=== PATIENT | female | born 1960 | race Caucasian/White ===

== ENCOUNTER 2017-02-26 20:06 | Emergency (ER) | payer BC ==
[2017-02-26 20:13] VITALS: BP 159/88; PULSE 68; TEMP 97.9; BMI 38.4
[2017-02-26] MEDS ORDERED: KETOROLAC TROMETHAMINE 60 MG/2 ML VIAL IM ONE (21:39)
--- NOTE | 2017-02-26 21:40 | PDOC ---
History of Present Illness - General Chief Complaint: Pain Stated Complaint: LT LEG PAIN Time Seen by Provider: 02/26/17 20:36 - History of Present Illness Initial Comments: CHIEF COMPLAINT: pain to L leg HISTORY OF PRESENT ILLNESS: 56 yo F with hx of NIDDM, obesity, telangiectasias and breast cancer (currently undergoing hormone chemotherapy) presents to fast track with pain to L leg. Patient states she had an event last night and wore high heels, at the end of the night she felt significant pain to her calf/leg. On arrival to fast track she complains of pain to her medial thigh. She states she had "shortness of breath last night because I was in pain." She reports that she sees Dr. Bhagat for her spider veins and had a negative ultrasound two weeks ago. PAtient states she "takes a water pill" once a week for her leg swelling. PAST MEDICAL HISTORY: Denies past medical history FAMILY HISTORY: Denies SOCIAL HISTORY: Denies tobacco, alcohol, illicit drug use. SURGICAL HISTORY: Denies ALLERGIES: Levaquin REVIEW OF SYSTEMS General/Constitutional: Denies fever or chills. Denies weakness, weight change. HEENT: Denies change in vision. Denies ear pain or discharge. Denies sore throat. Cardiovascular: Denies chest pain or shortness of breath. Respiratory: Denies cough, wheezing, or hemoptysis. Gastrointestinal: Denies nausea, vomiting, diarrhea or constipation. Denies rectal bleeding. Genitourinary: Denies dysuria, frequency, or change in urination. Musculoskeletal: Pain to L leg. Denies joint or muscle swelling or pain. Denies neck or back pain. Skin and breasts: Denies rash or easy bruising. PHYSICAL EXAM General Appearance: Well-appearing, appropriately dressed. No apparent distress , no intoxication. HEENT: EOMI, PERRLA, normal ENT inspection, normal voice, TMs normal, pharynx normal. No conjunctival pallor. No photophobia, scleral icterus. Neck: Supple. Trachea midline. No tenderness, rigidity, carotid bruit, stridor , lymphadenopathy, or thyromegaly. Respiratory/Chest: Lungs CTAB. No shortness of breath, chest tenderness, respiratory distress, accessory muscle use. No crackles, rales, rhonchi, stridor , wheezing, dullness Cardiovascular: RRR. S1, S2. No JVD, murmur, bradycardia, tachycardia. Vascular Pulses: Dorsalis-Pedis (R): 2+, Dorsalis-Pedis (L): 2+ Gastrointestinal/Abdominal: Normal bowel sounds. Abdomen soft, non-distended. No tenderness or rebound tenderness. No organomegaly, pulsatile mass, guarding , hernia, hepatomegaly, splenomegaly. Lymphatic: No adenopathy, tenderness. Musculoskeletal/Extremities: Nonpitting edema to b/l legs. Tenderness to R calf and thigh. No erythema or warmth. Normal inspection. FROM of all extremities, normal capillary refill. Pelvis Stable. No CVA tenderness. No tenderness to extremities, pedal edema, swelling, erythema or deformity. Integumentary: Appropriate color, dry, warm. 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 Fully oriented, alert. Appropriate mood/affect. Motor strength 5/5. No appreciable EOM palsy, facial droop or sensory deficit. Past History - Past Medical History Allergies/Adverse Reactions: Allergies Allergy/AdvReac Type Severity Reaction Status Date / Time levofloxacin [From Levaquin] AdvReac Severe Vomiting Verified 02/26/17 20:13 Home Medications: Ambulatory Orders Levothyroxine [Synthroid -] 137 mcg PO DAILY 02/28/12 Rosuvastatin Calcium [Crestor] 10 mg PO DAILY 02/28/12 Anastrozole [Arimidex -] 1 mg PO DAILY 07/08/14 Levothyroxine [Synthroid -] 137 mcg PO DAILY 07/08/14 Rosuvastatin Calcium [Crestor] 10 mg PO DAILY 07/08/14 Acetaminophen [Tylenol .Extra-Strength -] 1,000 mg PO Q6H 11/21/14 Anastrozole [Arimidex -] 1 mg PO DAILY 11/21/14 Ibuprofen [Advil -] 400 mg PO QID 11/21/14 Canagliflozin/Metformin HCl [Invokamet 50-500 mg Tablet] 1 each PO DAILY Meclizine HCl [Antivert -] 25 mg PO TID #21 tablet 08/19/15 Aspirin [Aspirin EC] 81 mg PO ASDIR 02/26/17 Ibuprofen [Motrin -] 800 mg PO TID #21 tablet 02/27/17 Cancer: Yes (breast) Diabetes: Yes Hypercholesterolemia: Yes Suicide Attempt (Hx): No Thyroid Disease: Yes - Surgical History Abdominal Surgery: Yes Cholecystectomy: Yes - Immunization History Immunization Up to Date: Yes - Psycho/Social/Smoking Cessation Hx Anxiety: Yes (not on meds) Suicidal Ideation: No Smoking Status: No Smoking History: Never smoked Have you smoked in the past 12 months: No Number of Cigarettes Smoked Daily: 0 Hx Alcohol Use: No Drug/Substance Use Hx: No *Physical Exam - Vital Signs Last Vital Signs Temp Pulse Resp BP Pulse Ox 97.9 F 68 18 159/88 100 02/26/17 20:07 02/26/17 20:07 02/26/17 20:07 02/26/17 20:07 02/26/17 20:07 ED Treatment Course - RADIOLOGY Radiology Studies Ordered: Category Date Time Status DUPLEX VASCUL US-1 LEG [US] Stat Ultrasound 02/26/17 21:32 Ordered Medical Decision Making - Medical Decision Making 02/26/17 21:39 56 yo F with hx of NIDDM, obesity, telangiectasias and breast cancer (currently undergoing hormone chemotherapy) presents to fast track with pain to L leg. Patient currently on hormones, concern for DVT. -Doppler US, r/o DVT -60 mg Toradol IM Patient awaiting ultrasound. Patient transferred to main ED. Sign out given to NALINI Beck. *DC/Admit/Observation/Transfer Diagnosis at time of Disposition: Leo cyst Qualifiers: Laterality: left Qualified Code(s): M71.22 - Synovial cyst of popliteal space [ Leo], left knee - Discharge Dispostion Disposition: HOME Condition at time of disposition: Stable - Prescriptions Prescriptions: Ibuprofen [Motrin -] 800 mg PO TID #21 tablet - Referrals Referrals: Arnel Tanner MD [Primary Care Provider] - - Patient Instructions Printed Discharge Instructions: DI for Leo's Cyst Additional Instructions: Your Discharge Instructions: You must call primary care physician within 24 hours to arrange follow-up. Return to the Emergency Department with any new, persistent or worsening symptoms, for fever, chills, SOB, dizziness or any other concerning changes that may occur.
[2017-02-26] MEDS ORDERED: KETOROLAC TROMETHAMINE 60 MG/2 ML VIAL ONE (23:59)
--- NOTE | 2017-02-27 00:08 | PDOC ---
*Physical Exam - Vital Signs Last Vital Signs Temp Pulse Resp BP Pulse Ox 97.9 F 68 18 159/88 100 02/26/17 20:07 02/26/17 20:07 02/26/17 20:07 02/26/17 20:07 02/26/17 20:07 Medical Decision Making - Medical Decision Making 02/27/17 00:04 endorsed to follow US of the left leg US impression: No DVT, small Leo's cyst (Enrique Landon MD) Patient wishes to go home will inst to follow up with ortho. *DC/Admit/Observation/Transfer Diagnosis at time of Disposition: Leo cyst Qualifiers: Laterality: left Qualified Code(s): M71.22 - Synovial cyst of popliteal space [ Leo], left knee - Discharge Dispostion Disposition: HOME Condition at time of disposition: Stable - Prescriptions Prescriptions: Ibuprofen [Motrin -] 800 mg PO TID #21 tablet - Referrals Referrals: Arnel Tanner MD [Primary Care Provider] - - Patient Instructions Printed Discharge Instructions: DI for Leo's Cyst Additional Instructions: Your Discharge Instructions: You must call primary care physician within 24 hours to arrange follow-up. Return to the Emergency Department with any new, persistent or worsening symptoms, for fever, chills, SOB, dizziness or any other concerning changes that may occur.
== END 2017-02-27 00:14 | disposition home or self-care (01) ==
LOC: JER 20:06 → JERFT 20:06 → JER 02-27 00:14
PROC: 3E0233Z Introduction of Anti-inflammatory into Muscle, Percutaneous Approach (ICD-10-PCS; principal; 2017-02-26)
DX: M71.22 Synovial cyst of popliteal space [Baker], left knee (principal); E78.00 Pure hypercholesterolemia, unspecified; E11.9 Type 2 diabetes mellitus without complications; E66.09 Other obesity due to excess calories; Z3A.38 38 weeks gestation of pregnancy; C50.919 Malignant neoplasm of unspecified site of unspecified female breast; I78.1 Nevus, non-neoplastic
CPT/HCPCS: 93971-TC; 99281-25

== ENCOUNTER 2017-10-16 12:04 | Emergency (ER) | payer OTHER, BC ==
[2017-10-16 12:41] VITALS: BP 120/83; PULSE 61; TEMP 97.8; BMI 38.4
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
== END 2017-10-16 15:09 | disposition home or self-care (01) ==
LOC: JERFT 12:04
DX: S83.8X2A Sprain of other specified parts of left knee, initial encounter (principal); Y04.2XXA Assault by strike against or bumped into by another person, initial encounter; W01.190A Fall on same level from slipping, tripping and stumbling with subsequent striking against furniture, initial encounter; Y93.89 Activity, other specified; Y92.218 Other school as the place of occurrence of the external cause; Y99.0 Civilian activity done for income or pay
CPT/HCPCS: 73562-TC-LT-FY; 99281-25

== ENCOUNTER 2018-02-15 14:39 | Observation (INO) | payer BC, OTHER ==
--- NOTE | 2018-02-15 14:55 | PDOC ---
Attending Attestation - Resident Resident Name: PageSimon - HPI HPI: 02/15/18 15:55 Pt presents to the ED complaining of epigastric pain along with an episode of shortness of breath last night. The epigastric pain has been present for several days. Denies fever, nausea or vomiting or cough. Patient was in Dr. Phillips's office today, where he did an ECHO that had questionable wall motion abnormalities. - Physicial Exam PE: 02/15/18 16:07 Agree with resident exam. patient is alert and orientded in no acute distress. Lungs are clear. Heart has regular rate and rhythm. EKG shows no evidence of ischemia. Differential includes ACS, CHF, PUD, gastritis. Will check labs and cardiac enzymes and observe for rule out VA.
[2018-02-15 14:58] VITALS: BMI 42.7
--- NOTE | 2018-02-15 15:04 | PDOC ---
History of Present Illness - General Chief Complaint: Chest Pain Stated Complaint: ABNORMAL EKG Time Seen by Provider: 02/15/18 14:46 History Source: Patient Exam Limitations: No Limitations - History of Present Illness Initial Comments: 02/15/18 16:05 57F hx of NIDDM, obesity, telangiectasias and breast cancer (currently undergoing hormone chemotherapy) sent by Dr. Gann for EKG changes and some possibly hypokinesis of the inferior wall on echocardiogram at the office. Was was recently diagnosed with h.Pylori, complaining of epigastric over the past few days. She was sent to Dr. Green for EKG with multiple new PVC's , dyspnea on exertion and insomnia due to nocturnal shortness of breath that forced her to stand up. Patient denies chest pain but still feel epigastric pain. PCP: Dr. Arnel Tanner Presenting Symptoms: Abdominal Pain Past History - Past Medical History Allergies/Adverse Reactions: Allergies Allergy/AdvReac Type Severity Reaction Status Date / Time levofloxacin [From Levaquin] AdvReac Severe Vomiting Verified 10/16/17 12:42 Home Medications: Ambulatory Orders Levothyroxine [Synthroid -] 137 mcg PO DAILY 02/28/12 Rosuvastatin Calcium [Crestor] 10 mg PO DAILY 02/28/12 Anastrozole [Arimidex -] 1 mg PO DAILY 07/08/14 Canagliflozin/Metformin HCl [Invokamet 50-500 mg Tablet] 1 each PO DAILY Aspirin [Aspirin EC] 81 mg PO ASDIR 02/26/17 Cancer: Yes (breast) COPD: No Diabetes: Yes Hypercholesterolemia: Yes Thyroid Disease: Yes - Surgical History Abdominal Surgery: Yes Cholecystectomy: Yes - Immunization History Immunization Up to Date: Yes - Suicide/Smoking/Psychosocial Hx Smoking Status: No Smoking History: Never smoked Have you smoked in the past 12 months: No Number of Cigarettes Smoked Daily: 0 Hx Alcohol Use: No Drug/Substance Use Hx: No Review of Systems - Review of Systems Able to Perform ROS?: Yes Is the patient limited Luxembourgish proficient: No Constitutional: No: Symptoms Reported HEENTM: No: Symptoms Reported Respiratory: No: Symptoms reported Cardiac (ROS): No: Symptoms Reported ABD/GI: Yes: See HPI : No: Symptoms Reported Musculoskeletal: No: Symptoms Reported Integumentary: No: Symptoms Reported Neurological: No: Symptoms reported *Physical Exam - Vital Signs Last Vital Signs Temp Pulse Resp BP Pulse Ox 98.4 F 78 20 139/99 99 02/15/18 14:54 02/15/18 14:54 02/15/18 14:54 02/15/18 14:54 02/15/18 14:54 - Physical Exam General Appearance: Yes: Nourished, Appropriately Dressed. No: Apparent Distress HEENT: positive: EOMI, RODOLFO, Normal ENT Inspection Respiratory/Chest: positive: Lungs Clear, Normal Breath Sounds. negative: Chest Tender, Respiratory Distress Cardiovascular: positive: Regular Rhythm, Regular Rate, S1, S2 Gastrointestinal/Abdominal: positive: Normal Bowel Sounds, Tender (epigastric), Flat, Soft Extremity: positive: Normal Capillary Refill Integumentary: positive: Normal Color, Dry, Warm Neurologic: positive: Fully Oriented, Alert, Normal Mood/Affect ED Treatment Course - LABORATORY CBC & Chemistry Diagram: 02/15/18 15:29 02/15/18 15:29 - ADDITIONAL ORDERS Additional order review: Laboratory Results 02/15/18 02/15/18 15:29 05:04 Sodium Cancelled 141 Potassium Cancelled 3.7 Chloride Cancelled 108 H Carbon Dioxide Cancelled 29 Anion Gap Cancelled 4 L BUN Cancelled 12 Creatinine Cancelled 0.5 L Creat Clearance w eGFR Cancelled > 60 Random Glucose Cancelled 82 Calcium Cancelled 8.8 Total Bilirubin Cancelled 0.3 AST Cancelled 14 L ALT Cancelled 27 Alkaline Phosphatase Cancelled 78 Troponin I Cancelled < 0.02 Total Protein Cancelled 7.4 Albumin Cancelled 3.7 02/15/18 15:29 RBC 4.71 MCV 74.7 L MCHC 32.1 RDW 15.0 MPV 8.9 Neutrophils % 61.6 Lymphocytes % 24.7 D Monocytes % 10.5 H Eosinophils % 2.0 D Basophils % 1.2 Medical Decision Making - Medical Decision Making 02/15/18 17:14 EKG: Normal sinus rhythm. Cannot rule out Inferior and anterior infarct, age undetermined. labs and trops pending. 02/15/18 18:05 All negative. Will admit to Dr. Feng. *DC/Admit/Observation/Transfer Diagnosis at time of Disposition: Atypical chest pain - Discharge Dispostion Decision to Admit order: Yes - Referrals Referrals: Arnel Tanner MD [Primary Care Provider] - - Patient Instructions - Post Discharge Activity
[2018-02-15 15:57] LABS: BASO % 1.2 % (0-2.0); HEMATOCRIT 35.2 % (32.4-45.2); HEMOGLOBIN 11.3 GM/dL (10.7-15.3); LYMPH % 24.7 % (8-40); MCHC 32.1 g/dl (32.0-36.0); MEAN CELL VOLUME 74.7 fl (80-96); MEAN PLT VOLUME 8.9 fl (7.5-11.1); MONO % 10.5 % (3.8-10.2); NEUT % 61.6 % (42.8-82.8); PLATELET COUNT 234 K/MM3 (134-434); RBC 4.71 M/mm3 (3.60-5.2); WHITE BLOOD COUNT 4.7 K/mm3 (4.0-10.0)
[2018-02-15 17:47] LABS: ALBUMIN 3.7 g/dl (3.4-5.0); ALK PHOS 78 U/L (45-117); ANION GAP 4 (8-16); BILIRUBIN,TOTAL 0.3 mg/dL (0.2-1.0); BLOOD UREA NITROGEN 12 mg/dL (7-18); CALCIUM 8.8 mg/dL (8.5-10.1); CHLORIDE 108 mmol/L (98-107); CO2 29 mmol/L (21-32); CREATININE 0.5 mg/dL (0.55-1.02); GLUCOSE,RANDOM 82 mg/dL (74-106); POTASSIUM 3.7 mmol/L (3.5-5.1); SGOT/AST 14 U/L (15-37); SGPT/ALT 27 U/L (12-78); SODIUM 141 mmol/L (136-145); TOT PROT 7.4 g/dl (6.4-8.2)
[2018-02-15] MEDS ORDERED: ASPIRIN 325 MG ENTERIC COATED TABLET (FP) PO ONE (18:23)
[2018-02-15] MEDS ORDERED: ASPIRIN 325 MG ENTERIC COATED TABLET (FP) ONE (18:37)
[2018-02-15 23:11] LABS: URINE APPEARANCE CLEAR; URINE BILIRUBIN NEGATIVE (<2.0 mg/dL); URINE COLOR LTYELLOW; URINE GLUCOSE (UA) NEGATIVE (NEGATIVE); URINE KETONE NEGATIVE (NEGATIVE); URINE NITRITE NEGATIVE (NEGATIVE); URINE PROTEIN NEGATIVE (NEGATIVE); URINE UROBILINOGEN NEGATIVE mg/dL (0.2-1.0)
[2018-02-15 23:32] LABS: URINE LEUK ESTERASE 1+ (NEGATIVE)
[2018-02-16 00:19] LABS: EPI CELLS RARE /HPF (FEW); URINE BACTERIA RARE /hpf (NONE SEEN); URINE MUCUS RARE
[2018-02-16] MEDS ORDERED: ASPIRIN COATED 81 MG TABLET.EC PO SCH (02:45)
--- NOTE | 2018-02-16 02:48 | HP ---
Admitting History and Physical - Past Medical History Cardiovascular: Yes: HTN, Hyperlipdemia - Smoking History Smoking history: Never smoked Have you smoked in the past 12 months: No Aproximately how many cigarettes per day: 0 - Alcohol/Substance Use Hx Alcohol Use: No - Social History ADL: Independent History of Recent Travel: No Home Medications - Allergies Allergies/Adverse Reactions: Allergies Allergy/AdvReac Type Severity Reaction Status Date / Time levofloxacin [From Levaquin] AdvReac Severe Vomiting Verified 10/16/17 12:42 - Home Medications Home Medications: Ambulatory Orders Levothyroxine [Synthroid -] 137 mcg PO DAILY 02/28/12 Rosuvastatin Calcium [Crestor] 10 mg PO DAILY 02/28/12 Anastrozole [Arimidex -] 1 mg PO DAILY 07/08/14 Canagliflozin/Metformin HCl [Invokamet 50-500 mg Tablet] 1 each PO DAILY Aspirin [Aspirin EC] 81 mg PO ASDIR 02/26/17 Amoxicillin - [Amoxicillin 500mg Capsule -] 500 mg PO BID 02/15/18 Pantoprazole Sodium [Protonix] 40 mg PO DAILY 02/15/18 Physical Examination Vital Signs: Vital Signs Temperature 98.3 F 02/16/18 02:42 Pulse Rate 71 02/16/18 02:42 Respiratory Rate 20 02/16/18 02:42 Blood Pressure 104/62 02/16/18 02:42 O2 Sat by Pulse Oximetry (%) 99 02/15/18 14:54 Labs: CBC, BMP 02/15/18 15:29 02/15/18 15:29
[2018-02-16] MEDS ORDERED: LEVOTHYROXINE NA 25 MCG TABLET (FP) ONE (05:02)
[2018-02-16] MEDS ORDERED: LEVOTHYROXINE NA 112 MCG TABLET (FP) ONE (05:02)
[2018-02-16] MEDS: INSULIN SLIDING SCALE (NOVOLOG) 1 VIAL SQ SCH ×2 (06:37→12:24)
[2018-02-16] MEDS ORDERED: metFORMIN HCL 500 MG TABLET (FP) PO SCH (07:00)
[2018-02-16] MEDS ORDERED: LEVOTHYROXINE 112 MCG, LEVOTHYROXINE 25 MCG PO SCH (07:00)
[2018-02-16 07:14] LABS: BASO % 1.1 % (0-2.0); EOS % 2.1 % (0-4.5); HEMOGLOBIN 11.3 GM/dL (10.7-15.3); MCH 24.2 pg (25.7-33.7); MCHC 32.3 g/dl (32.0-36.0); MEAN CELL VOLUME 74.9 fl (80-96); MEAN PLT VOLUME 8.9 fl (7.5-11.1); MONO % 10.6 % (3.8-10.2); NEUT % 61.2 % (42.8-82.8); PLATELET COUNT 204 K/MM3 (134-434); RBC 4.68 M/mm3 (3.60-5.2); RDW 14.9 % (11.6-15.6); WHITE BLOOD COUNT 5.6 K/mm3 (4.0-10.0)
--- NOTE | 2018-02-16 08:38 | PN ---
Progress Note, Physician Chief Complaint: 57F with PMH breast CA,hypothyroidism, DM, HL, mild non-obstx CAD on coronary CTA at [facility] in 2013 presented to office with epigastric pain and + breath test for H Pylori. Also c/o AMARO x 1 one day ECG showed PVCs. Office echo technically difficult- inferior wall not well seen. Given her AMARO, PVCs and epigastric pain I sent her to ER to R/O [place] and for further work up. TnI negative, multiple sets. D-dimer negative, O2 saturation 99% room air CXR WNL LE doppler negative. History of Present Illness: TELE: NSR w/ rare PVCs - Current Medication List Current Medications: Active Medications Anastrozole (Arimidex -) 1 mg PO DAILY [facility] Aspirin (Ecotrin -) 81 mg PO ASDIR [facility] Insulin Aspart (Novolog Vial Sliding Scale -) 1 vial SQ ACHS [facility]; Protocol Last Admin: 02/16/18 06:37 Dose: Not Given Levothyroxine Sodium 112 mcg/ (Levothyroxine Sodium 25 mcg) 137 mcg PO DAILY@ 0700 [facility] Last Admin: 02/16/18 06:38 Dose: 137 mcg Metformin HCl (Glucophage -) 500 mg PO BID@0700,1630 [facility] Last Admin: 02/16/18 06:39 Dose: Not Given Pantoprazole Sodium (Protonix -) 40 mg PO DAILY [facility] Rosuvastatin Calcium (Crestor -) 10 mg PO HS [facility] - Objective Vital Signs: Vital Signs Temperature 98.3 F 02/16/18 05:25 Pulse Rate 62 02/16/18 05:25 Respiratory Rate 16 02/16/18 08:31 Blood Pressure 125/70 02/16/18 05:25 O2 Sat by Pulse Oximetry (%) 98 02/16/18 08:31 Constitutional: Yes: No Distress, Calm Eyes: Yes: Conjunctiva Clear, EOM Intact HENT: Yes: Atraumatic, Normocephalic Neck: Yes: Supple, Trachea Midline Cardiovascular: Yes: Regular Rate and Rhythm Respiratory: Yes: CTA Bilaterally (no rales or wheezing) Gastrointestinal: Yes: Soft (non-tender) Edema: Yes (lymphedema b/l) Neurological: Yes: Alert, Oriented ...Motor Strength: WNL Psychiatric: Yes: WNL Labs: CBC, BMP 02/16/18 05:30 02/15/18 15:29 - ....Imaging Chest X-ray: Report Reviewed, Image Reviewed EKG: Image Reviewed Other: Other (LE Venous Duplex negative DVT b/l) Problem List - Problems (1) Atypical chest pain Assessment/Plan: -Low suspicion for pulmonary embolism: normal O2 saturation, negative D-dimer; ECG not c/w pericarditis -Serial cardiac enzymes negative -For echo and Lexiscan MIBI today -If negative or mild defect plan for d/c with medical Rx and close outpatient f/ u Code(s): R07.89 - OTHER CHEST PAIN (2) VPC (ventricular premature complex) Assessment/Plan: -Check TSH -Telemetry -Will consider beta mi after assessment of 24 hour VPC burden; currently asx without palpitations Code(s): I49.3 - VENTRICULAR PREMATURE DEPOLARIZATION (3) Diabetes Assessment/Plan: -further management per PMD Code(s): E11.9 - TYPE 2 DIABETES MELLITUS WITHOUT COMPLICATIONS Qualifiers: Diabetes mellitus type: type 2 Diabetes mellitus complication status: without complication (4) CAD (coronary artery disease) Assessment/Plan: -Coronary CTA mild non-obstx in 2014 -ASA and Statin -Lexiscan MIBI today Code(s): I25.10 - ATHSCL HEART DISEASE OF [place] CORONARY ARTERY W/O ANG PCTRS Qualifiers: Coronary Disease-Associated Artery/Lesion type: [place] artery [place] vs. transplanted heart: [place] heart Associated angina: without angina Qualified Code(s): I25.10 - Atherosclerotic heart disease of [place] coronary artery without angina pectoris (5) Hyperlipidemia Assessment/Plan: -outpatient fasting lipids; continue statin -counselled on diet and exercise Code(s): E78.5 - HYPERLIPIDEMIA, UNSPECIFIED Qualifiers: Hyperlipidemia type: unspecified Qualified Code(s): E78.5 - Hyperlipidemia , unspecified (6) Leo cyst Qualifiers: Laterality: left Qualified Code(s): M71.22 - Synovial cyst of popliteal space [[place]], left knee
--- NOTE | 2018-02-16 09:42 | EKG ---
Test Reason : Blood Pressure : / mmHG Vent. Rate : 074 BPM Atrial Rate : 074 BPM P-R Int : 184 ms QRS Dur : 098 ms QT Int : 440 ms P-R-T Axes : 000 146 157 degrees QTc Int : 488 ms SUSPECT ARM LEAD REVERSAL, INTERPRETATION ASSUMES NO REVERSAL NORMAL SINUS RHYTHM INFERIOR INFARCT (CITED ON OR BEFORE 16-AUG-2011) ANTEROLATERAL INFARCT (CITED ON OR BEFORE 31-JUL-2011) ABNORMAL ECG WHEN COMPARED WITH ECG OF 15-FEB-2018 15:08, QRS AXIS SHIFTED RIGHT QUESTIONABLE CHANGE IN INITIAL FORCES OF LATERAL LEADS Confirmed by CHRISTOPHER SANZ MD ([id number]) on 02/16/2018 9:42:24 AM Referred By: ZUHAIR Confirmed By:CHRISTOPHER SANZ MD
[2018-02-16] MEDS ORDERED: REGADENOSON 0.4 MG/5 ML PRE-FILLED SYRINGE IVPUSH ONE ×2 (09:45→10:33)
--- NOTE | 2018-02-16 09:45 | EKG ---
Test Reason : Blood Pressure : / mmHG Vent. Rate : 074 BPM Atrial Rate : 074 BPM P-R Int : 172 ms QRS Dur : 094 ms QT Int : 418 ms P-R-T Axes : 036 000 013 degrees QTc Int : 463 ms NORMAL SINUS RHYTHM CANNOT RULE OUT INFERIOR INFARCT (CITED ON OR BEFORE 16-AUG-2011) CANNOT RULE OUT ANTERIOR INFARCT (CITED ON OR BEFORE 31-JUL-2011) ABNORMAL ECG WHEN COMPARED WITH ECG OF 21-NOV-2014 00:12, PREMATURE VENTRICULAR COMPLEXES ARE NO LONGER PRESENT Confirmed by CHRISTOPHER SANZ MD ([id number]) on 02/16/2018 9:44:55 AM Referred By: Confirmed By:CHRISTOPHER SANZ MD
[2018-02-16] MEDS ORDERED: PANTOPRAZOLE 40 MG TABLET (FP) PO SCH (10:00)
[2018-02-16] MEDS ORDERED: LEVOTHYROXINE NA 150 MCG TABLET PO SCH (10:00)
[2018-02-16] MEDS ORDERED: ANASTROZOLE 1 MG TABLET PO SCH (10:00)
[2018-02-16] MEDS ORDERED: AMINOPHYLLINE 250 MG/10 ML VIAL ONE (11:12)
[2018-02-16] MEDS ORDERED: AMINOPHYLLINE 250 MG/10 ML VIAL IVPUSH ONE (11:15)
[2018-02-16 12:28] VITALS: BP 123/92; PULSE 71; TEMP 98.3
[2018-02-16] MEDS ORDERED: metoPROLOL SUCCINATE 25 MG TAB.SR.24H (FP) PO SCH (13:30)
[2018-02-16] MEDS ORDERED: ROSUVASTATIN CA 10 MG TABLET (FP) PO SCH (22:00)
== END 2018-02-16 16:16 | disposition short-term general hospital (02) ==
LOC: JER 14:39 → SUPCPDRO 14:39 → JERBED 18:07 → J4W 19:05 → INTOOBSV 02-16 02:44 → OBSVTOIN 02-16 02:44
PROVIDERS: ADMIT Internal Medicine; ATTEND Internal Medicine
PROC: 3E033GC Introduction of Other Therapeutic Substance into Peripheral Vein, Percutaneous Approach (ICD-10-PCS; principal; 2018-02-15)
DX: R07.89 Other chest pain (principal); E11.9 Type 2 diabetes mellitus without complications; C50.919 Malignant neoplasm of unspecified site of unspecified female breast; I10 Essential (primary) hypertension; I25.10 Atherosclerotic heart disease of native coronary artery without angina pectoris; I49.3 Ventricular premature depolarization; M71.22 Synovial cyst of popliteal space [Baker], left knee; E78.5 Hyperlipidemia, unspecified; E66.9 Obesity, unspecified; Z68.41 Body mass index [BMI] 40.0-44.9, adult; Z92.21 Personal history of antineoplastic chemotherapy; Z88.1 Allergy status to other antibiotic agents; Z79.82 Long term (current) use of aspirin
CPT/HCPCS: 36415; 71045-TC-FY; 78452-TC; 80053; 81003; 81015; 82550; 82553; 82962; 84484; 85025; 85379; 93005; 93010; 93017; 93306-TC; 93970-TC; 99283-25; A9502; G0378; J2785

== ENCOUNTER 2018-09-02 19:50 | Emergency (ER) | payer BC ==
--- NOTE | 2018-09-02 20:00 | PDOC ---
History of Present Illness - General Stated Complaint: FALL Time Seen by Provider: 09/02/18 19:59 History Source: Patient - History of Present Illness Initial Comments: 09/02/18 20:19 The patient is a 57 year old female with a PMH of HTN, HLD, Breast CA (s/p lumpectomy) who presents to our ED following a mechanical fall. 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 Denies LOC, states she had a few seconds of feeling as if the room was spinning. No nausea/vomiting Did not attempt to move/ambulate, EMS called. 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 The patient denies chest pain, shortness of breath, abdominal pain, nausea/ vomiting, diarrhea/constipation, dysuria/hematuria. Allergy: Floroquinolones Surgical: R breast lumpectomy Social: denies toxic habits PMD: Dr. Young Tanner As per EMR patient Past History - Past Medical History Allergies/Adverse Reactions: Allergies Allergy/AdvReac Type Severity Reaction Status Date / Time levofloxacin [From Levaquin] AdvReac Severe Vomiting Verified 10/16/17 12:42 Home Medications: Ambulatory Orders Levothyroxine [Synthroid -] 137 mcg PO DAILY 02/28/12 Rosuvastatin Calcium [Crestor] 10 mg PO DAILY 02/28/12 Anastrozole [Arimidex -] 1 mg PO DAILY 07/08/14 Canagliflozin/Metformin HCl [Invokamet 50-500 mg Tablet] 1 each PO DAILY Aspirin [Aspirin EC] 81 mg PO ASDIR 02/26/17 Amoxicillin - [Amoxicillin 500mg Capsule -] 500 mg PO BID 02/15/18 Pantoprazole Sodium [Protonix] 40 mg PO DAILY 02/15/18 Cancer: Yes (breast, on hormone therapy) Cardiac Disorders: Yes (ACS) COPD: No Diabetes: Yes GI Disorders: Yes (Peptic ulcers, H.Pylori, gastritis) Hypercholesterolemia: Yes Thyroid Disease: Yes - Surgical History Abdominal Surgery: Yes Cholecystectomy: Yes (20 years ago) - Immunization History Immunization Up to Date: Yes - Suicide/Smoking/Psychosocial Hx Smoking Status: No Smoking History: Never smoked Have you smoked in the past 12 months: No Number of Cigarettes Smoked Daily: 0 Hx Alcohol Use: No Drug/Substance Use Hx: No Substance Use Type: None Hx Substance Use Treatment: No Review of Systems - Review of Systems Constitutional: No: Chills, Fever HEENTM: No: Recent change in vision Respiratory: No: Cough, Shortness of Breath Cardiac (ROS): No: Chest Pain, Lightheadedness, Palpitations, Syncope ABD/GI: No: Constipated, Diarrhea, Nausea, Vomiting Musculoskeletal: Yes: Other (LUE - shoulder, wrist pain; pain in L trapezoid area) Neurological: No: Numbness, Tingling *Physical Exam - Physical Exam General Appearance: Yes: Nourished, Appropriately Dressed HEENT: positive: Normal Voice, Hearing Grossly Normal. negative: TM Bulging, TM Dull, TM Erythema Neck: positive: Trachea midline, Supple Respiratory/Chest: positive: Lungs Clear, Normal Breath Sounds Cardiovascular: positive: S1, S2. negative: JVD Vascular Pulses: Dorsalis-Pedis (R): 2+, Doralis-Pedis (L): 2+ Gastrointestinal/Abdominal: positive: Normal Bowel Sounds, Soft Extremity: positive: Normal Capillary Refill, Normal Inspection, Pedal Edema (3 + pitting edema B/L LE) Integumentary: positive: Normal Color, Dry, Warm Medical Decision Making - Medical Decision Making 09/02/18 20:34 57 year old female s/p mechanical fall. No LOC Hypertensive ( PE significant for L volar/dorsal wrist TTP, anterior shoulder TTP. Ranges LUE w/pain No C- spine or midline L/T/S TTP. Will obtain XR of L wrist, humerus, shoulder, L rib series. As patient has no LOC, no neurologic deficit on PE, will withhold from CT head at this time. Toradol for pain control. Reassess. 09/02/18 21:08 09/02/18 21:24 Patient ambulatory around unit XR taken, awaiting images Toradol administered @ 2100 09/02/18 22:01 Repeat BP 144/74 Hand, wrist, shoulder, rib series negative for fracture Will discharge patient home with supportive care. I discussed the physical exam findings, ancillary test results and final diagnoses with the patient. I answered all of the patient's questions. The patient was satisfied with the care received and felt comfortable with the discharge plan and treatment plan. The patient will return to the Emergency Department with any new, persistent or worsening symptoms. 09/02/18 22:03 *DC/Admit/Observation/Transfer Diagnosis at time of Disposition: Fall - Discharge Dispostion Disposition: HOME Condition at time of disposition: Good Decision to Admit order: No - Referrals Referrals: Arnel Tanner MD [Primary Care Provider] - - Patient Instructions Printed Discharge Instructions: How To Perform RICE (Rest, Ice, Compress, Elevate) Additional Instructions: You can take Tylenol (up to 4000 mg daily) alternating with Motrin (up to 3200 mg daily) for your pain for the next 3-5 days. Please follow-up with your primary care doctor in the next 3 days. Return to the Emergency Department for any new/worsening/concerning symptoms. - Post Discharge Activity
[2018-09-02] MEDS ORDERED: KETOROLAC TROMETHAMINE 30 MG/1 ML VIAL IM ONE (20:14)
--- NOTE | 2018-09-02 20:32 | PDOC ---
Attending Attestation - HPI HPI: 09/02/18 20:32 The patient is a 57 year old female, with a significant past medical history of breast CA s/p lumpectomy, hypertension, hyperlipidemia, who presents to the emergency department s/p slip and fall on a wet floor around 730pm. 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 She denies LOC. She denies head trauma. She reports left wrist pain, left shoulder and left flank pain at this time. She denies hitting any objects on the way down. She reportedly fell onto a wet tiled floor. The patient denies chest pain, shortness of breath, headache and dizziness. The patient denies fever, chills, nausea, vomit, diarrhea and constipation. The patient denies dysuria, frequency, urgency and hematuria. Allergies: levofloxacin PCP: Dr. Arnel Tanner - Physicial Exam PE: 09/02/18 20:33 GENERAL: Awake, alert, and fully oriented, in no acute distress HEAD: (+) small hematoma to the left. EYES: PERRLA, EOMI, sclera anicteric, conjunctiva clear ENT: Auricles normal inspection, hearing grossly normal, nares patent, oropharynx clear without exudates. Moist mucosa NECK: Normal ROM, supple, no lymphadenopathy, JVD, or masses LUNGS: Breath sounds equal, clear to auscultation bilaterally. No wheezes, and no crackles HEART: Regular rate and rhythm, normal S1 and S2, no murmurs, rubs or gallops ABDOMEN: Soft, nontender, normoactive bowel sounds. No guarding, no rebound. No masses EXTREMITIES: Normal range of motion, no edema. No clubbing or cyanosis. No cords, erythema, or tenderness NEUROLOGICAL: Cranial nerves II through XII grossly intact. Normal speech, normal gait SKIN: Warm, Dry, normal turgor, no rashes or lesions noted. MUSCULOSKELETAL: (+) Left paraspinal lumbar and trapezius pain on palpation. tenderness to ribs 5,6,7,8 on left. No midline spine pain. Pain improvement with Toradol in ED. - Medical Decision Making 09/02/18 20:33 Documentation prepared by Sasha Roberts, acting as medical records technician for Joslyn Gill MD <Sasha Roberts - Last Filed: 09/02/18 22:15> - Resident Resident Name: Giuliana Jonas - ED Attending Attestation I have performed the following: I have examined & evaluated the patient, The case was reviewed & discussed with the resident, I agree w/resident's findings & plan - Medical Decision Making 09/02/18 21:58 XRAYS all normal; pt can go home with motrin and muscle relaxant 09/02/18 23:00 Son will prescribe musle relaxant if mom wants it; she is refusing it at this time. <Joslyn Gill - Last Filed: 09/02/18 23:00>
[2018-09-02] MEDS ORDERED: KETOROLAC TROMETHAMINE 30 MG/1 ML VIAL ONE (21:09)
[2018-09-02 23:50] VITALS: TEMP 98; BMI 42.5
[2018-09-07 04:52] VITALS: BP 144/74; PULSE 72
== END 2018-09-03 00:14 | disposition home or self-care (01) ==
LOC: JER 19:50
PROC: 3E0233Z Introduction of Anti-inflammatory into Muscle, Percutaneous Approach (ICD-10-PCS; principal; 2018-09-02)
DX: S09.8XXA Other specified injuries of head, initial encounter (principal); M25.532 Pain in left wrist; M79.642 Pain in left hand; W01.0XXA Fall on same level from slipping, tripping and stumbling without subsequent striking against object, initial encounter; Y93.89 Activity, other specified; Y92.59 Other trade areas as the place of occurrence of the external cause; Y99.8 Other external cause status; I10 Essential (primary) hypertension; E11.9 Type 2 diabetes mellitus without complications; Z79.84 Long term (current) use of oral hypoglycemic drugs; E03.9 Hypothyroidism, unspecified; Z87.19 Personal history of other diseases of the digestive system; Z85.3 Personal history of malignant neoplasm of breast
CPT/HCPCS: 71101-TC-LT-FY; 73030-TC-LT-FY; 73060-TC-LT-FY; 73110-TC-LR-FY; 73130-TC-LT-FY; 99281-25; 99282-25

== ENCOUNTER 2021-04-13 08:55 | Emergency (ER) | payer BC ==
[2021-04-13] MEDS ORDERED: CASIRIVIMAB/IMDEVIMAB 10 ML in SODIUM CHLORIDE 100 ML IVPB ONE (09:24)
[2021-04-13] MEDS ORDERED: ACETAMINOPHEN 1000 MG/100 ML VIAL (NON FORMULARY) IVPB ONE (09:24)
[2021-04-13 09:27] VITALS: BMI 40.2
[2021-04-13] MEDS ORDERED: SODIUM CHLORIDE 1,000 ML IV SCH (09:30)
[2021-04-13] MEDS ORDERED: ACETAMINOPHEN INJECTION 100 ML IVPB ONE (09:39)
[2021-04-13] MEDS ORDERED: METOCLOPRAMIDE HCL INJECTION 10 MG/2 ML VIAL ONE (09:39)
[2021-04-13] MEDS ORDERED: ONDANSETRON 4 MG/2 ML VIAL IVPUSH ONE (09:49)
[2021-04-13] MEDS ORDERED: METOCLOPRAMIDE HCL INJECTION 10 MG/2 ML VIAL IVPUSH ONE (10:40)
[2021-04-13 11:10] LABS: BASO % 0.5 % (0-2.0); EOS % 0.3 % (0-4.5); HEMATOCRIT 37.1 % (32.4-45.2); LYMPH % 19.8 % (8-40); MCH 23.8 pg (25.7-33.7); MCHC 32.3 g/dl (32.0-36.0); MEAN CELL VOLUME 73.7 fl (80-96); MONO % 10.5 % (3.8-10.2); NEUT % 68.9 % (42.8-82.8); PLATELET COUNT 220 10^3/uL (134-434); RBC 5.03 M/mm3 (3.60-5.2); RDW 14.8 % (11.6-15.6); WHITE BLOOD COUNT 6.8 K/mm3 (4.0-10.0)
[2021-04-13 11:24] LABS: BLOOD UREA NITROGEN 11.3 mg/dL (7-18); CALCIUM 8.5 mg/dL (8.5-10.1)
[2021-04-13 11:25] LABS: ALBUMIN 3.6 g/dl (3.4-5.0)
[2021-04-13 11:27] LABS: CREATININE 0.6 mg/dL (0.55-1.3)
[2021-04-13 11:29] LABS: BILIRUBIN,TOTAL 0.3 mg/dL (0.2-1); TOT PROT 7.4 g/dl (6.4-8.2)
[2021-04-13 12:08] VITALS: BP 102/69; PULSE 63; TEMP 98.9
== END 2021-04-13 12:07 | disposition home or self-care (01) ==
LOC: JER 08:55 → JCOVINFU 08:55
PROC: 3E0333Z Introduction of Anti-inflammatory into Peripheral Vein, Percutaneous Approach (ICD-10-PCS; principal; 2021-04-13)
PROC: 3E03329 Introduction of Other Anti-infective into Peripheral Vein, Percutaneous Approach (ICD-10-PCS; 2021-04-13)
PROC: 3E033GC Introduction of Other Therapeutic Substance into Peripheral Vein, Percutaneous Approach (ICD-10-PCS; 2021-04-13)
DX: U07.1 COVID-19 (principal)
CPT/HCPCS: 71046-TC-FY; 80053; 82550; 82728; 83615; 85025; 86140; 99285-25; J0131; M0240; Q0240

== ENCOUNTER 2022-06-14 21:40 | Emergency (ER) | payer OTHER, BC ==
[2022-06-14] MEDS ORDERED: DIPHTH,PERTUSS(ACELL),TET 0.5 ML DISP.SYRIN IM ONE ×2 (21:55→22:07)
[2022-06-14 22:00] VITALS: BP 144/76; PULSE 70; RESP 17; TEMP 98.6; BMI 38.4
[2022-06-14] MEDS ORDERED: traMADol HCL 50 MG TABLET PO ONE (22:00)
[2022-06-14] MEDS ORDERED: CEPHALEXIN MONOHYDRATE 500 MG CAPSULE (UD) PO ONE (22:00)
[2022-06-14] MEDS ORDERED: CEPHALEXIN MONOHYDRATE 500 MG CAPSULE (UD) ONE (22:06)
[2022-06-14] MEDS ORDERED: traMADol HCL 50 MG TABLET ONE (22:06)
== END 2022-06-14 22:21 | disposition home or self-care (01) ==
LOC: FER 21:40
PROC: 3E0234Z Introduction of Serum, Toxoid and Vaccine into Muscle, Percutaneous Approach (ICD-10-PCS; principal; 2022-06-14)
DX: S61.211A Laceration without foreign body of left index finger without damage to nail, initial encounter (principal); W26.0XXA Contact with knife, initial encounter
CPT/HCPCS: 90471; 90715; 99284-25